=== PATIENT | female | born 1990 | race Caucasian/White ===

== ENCOUNTER 2018-04-20 16:57 | Emergency (ER) | payer MEDICAID ==
[~2018-04-20] VITALS: Ht 160 cm; Wt 67.6 kg
[2018-04-20 17:01] VITALS: BP 133/70
--- NOTE | 2018-04-20 17:04 | NUR ---
URINE CUP HANDED TO PT FOR SAMPLE
[2018-04-20 18:36] LABS: APPEARANCE,URINE CLEAR (CLEAR); COLOR,URINE YELLOW (YELLOW)
[2018-04-20 18:37] LABS: BILIRUBIN,URINE NEGATIVE (NEGATIVE); BLOOD, URINE NEGATIVE (NEGATIVE); LEUKOCYTE ESTERASE ,URINE NEGATIVE (NEGATIVE); NITRITE, URINE NEGATIVE (NEGATIVE); UGLUCOSE NEGATIVE (NEGATIVE)
--- NOTE | 2018-04-20 20:15 | NUR ---
PT CALLED AT 1950, 1954, AND 2014 W/ NO ANSWER. PATIENT LEFT WITHOUT BEING SEEN BY DR. ESCOBAR. NO FURTHER CARE PROVIDED FOR PATIENT.
== END 2018-04-20 19:50 | disposition left against medical advice (07) ==
LOC: MED 16:57
DX: R10.2 Pelvic and perineal pain (principal); Z53.21 Procedure and treatment not carried out due to patient leaving prior to being seen by health care provider
CPT/HCPCS: 81003; 81025; 99281

== ENCOUNTER 2018-09-08 00:09 | Emergency (ER) | payer MEDICAID ==
[~2018-09-08] VITALS: Ht 162.6 cm; Wt 67.1 kg
[2018-09-08 00:19] VITALS: BP 109/74
--- NOTE | 2018-09-08 00:21 | NUR ---
TO LOBBY A/W BED, PAMELLA APPIAH NOTED
--- NOTE | 2018-09-08 00:41 | NUR ---
PT AMBULATED TO BED 03.
--- NOTE | 2018-09-08 00:55 | NUR ---
PT BIB FAMILY C/O DYSURIA. PT STATES DYSURIA, AND FREQUENCY X3 DAYS; HEMATURIA THIS MORNING. DENIES N/V/D. PT STATES 0/10 PAIN AT THIS TIME. --BREATHING EQUAL AND UNLABORED. LUNG SOUND CLEAR BL. BOWEL SOUNDS ACTIVE X4 QUAD. SKIN WARM, DRY AND INTACT. PT IN BED; BED IN LOWER LOCKED POSITION. ER AWARE. PMH: DENIES RX: DENIES
--- NOTE | 2018-09-08 00:58 | NUR ---
Patient discharged by Dr. Adhikari, with v/s stable. Written and verbal after care instructions given and explained. Patient alert, oriented and verbalized understanding of instructions. ID band removed. Patient advised to follow up with PMD. Rx of Pyridium, and Miacrobid Capsule given. Patient educated on indication of medication including possible reaction and side effects. Opportunity to ask questions provided and answered.
[2018-09-08 01:14] VITALS: BP 110/79
== END 2018-09-08 00:58 | disposition home or self-care (01) ==
LOC: MED 00:09
DX: N39.0 Urinary tract infection, site not specified (principal)
CPT/HCPCS: 81002; 81025; 99283

== ENCOUNTER 2018-12-23 10:02 | Emergency (ER) | payer MEDICAID ==
[~2018-12-23] VITALS: Ht 162.6 cm; Wt 71.9 kg
[2018-12-23 10:05] VITALS: BP 111/74
--- NOTE | 2018-12-23 10:15 | NUR ---
Pt c/o blood in urine since yesterday. Denies dysuria or urgency, no recent injury/trauma. DENIES N/V/D; SKIN IS PINK/WARM/DRY; AAOX4 WITH EVEN AND STEADY GAIT; PT DENIES ANY FEVER, CP, SOB, OR COUGH AT THIS TIME; PATIENT STATES PAIN OF 0/10 AT THIS TIME; VSS; PATIENT POSITIONED FOR COMFORT; HOB ELEVATED; BEDRAILS UP X1; BED DOWN. ER MD MADE AWARE OF PT STATUS. DARK BLOOD SPOTS SEEN IN PT'S URINE SAMPLE.
--- NOTE | 2018-12-23 11:10 | NUR ---
Dr. Andrea is re-evaluating pt at bedside.
[2018-12-23 11:53] VITALS: BP 124/81
--- NOTE | 2018-12-23 11:53 | NUR ---
Patient discharged with v/s stable. Written and verbal after care instructions given and explained. Patient verbalized understanding. Ambulatory with steady gait. All questions addressed prior to discharge. Advised to follow up with PMD.
== END 2018-12-23 11:53 | disposition home or self-care (01) ==
LOC: MED 10:02
DX: R31.9 Hematuria, unspecified (principal)
CPT/HCPCS: 81002; 81025; 99283; C1758

== ENCOUNTER 2020-09-28 01:14 | Emergency (ER) | payer MEDICAID ==
[~2020-09-28] VITALS: Ht 160 cm; Wt 63.5 kg
[2020-09-28 01:40] VITALS: BP 112/62
--- NOTE | 2020-09-28 01:52 | NUR ---
AMBUATED TO ER BED 3
--- NOTE | 2020-09-28 02:19 | NUR ---
DR. BELTRÁN AT BEDSIDE ASSESSING PATIENT
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
[2020-09-28 02:50] VITALS: BP 112/62
== END 2020-09-28 02:50 | disposition home or self-care (01) ==
LOC: MED 01:14
DX: M79.18 Myalgia, other site (principal)
CPT/HCPCS: 99281

== ENCOUNTER 2021-04-02 17:23 | Emergency (ER) | payer MEDICAID ==
[~2021-04-02] VITALS: Ht 160 cm; Wt 65.3 kg
[2021-04-02 17:46] VITALS: BP 115/70
--- NOTE | 2021-04-02 17:55 | NUR ---
PT SENT TO LOBBY
[2021-04-02 18:31] LABS: BASOPHILS # (AUTO) 0.1 K/uL (0.00-0.22); BASOPHILS % (AUTO) 0.7 % (0.0-2.0); EOSINOPHILS # (AUTO) 0.1 K/uL (0-0.4); HEMATOCRIT 42.5 % (36-48); LYMPHOCYTES # (AUTO) 1.8 K/uL (2.5-16.5); LYMPHOCYTES % (AUTO) 18.9 % (20.5-51.1); MEAN CORPUSCULAR HEMOGLOBIN 30 pg (27-31); MEAN CORPUSCULAR HGB CONC 33 g/dL (33-37); MONOCYTES # (AUTO) 0.6 K/uL (0.8-1.0); MONOCYTES % (AUTO) 5.9 % (1.7-9.3); NEUTROPHILS # (AUTO) 7.1 K/uL (1.8-7.7); NEUTROPHILS % (AUTO) 73.5 % (42.2-75.2); PLATELET COUNT (AUTO) 423 K/uL (140-450); RED BLOOD CELL COUNT(AUTO) 4.72 MIL/uL (4.20-5.40); WHITE BLOOD COUNT (AUTO) 9.6 K/uL (4.8-10.8)
[2021-04-02 18:38] LABS: ANION GAP 14.2 (8-16); CREATININE 0.7 mg/dL (0.6-1.3); POTASSIUM 4.2 mmol/L (3.5-5.1)
[2021-04-02 18:43] LABS: ALBUMIN 3.6 g/dL (3.4-5.0); TOTAL BILIRUBIN 0.2 mg/dL (0.0-1.0)
[2021-04-02] MEDS ORDERED: NAPR-54 PO (19:27)
[2021-04-02] MEDS ORDERED: CEPH-588 PO (19:32)
--- NOTE | 2021-04-02 19:53 | NUR ---
Patient discharged with v/s stable. Written and verbal after care instructions about wound care and seroma were given and explained. Patient alert, oriented and verbalized understanding of instructions. Ambulatory with steady gait. All questions addressed prior to discharge. ID band removed. Patient advised to follow up with PMD. Rx of Cephalexin and Naproxen given. Patient educated on indication of medication including possible reaction and side effects. Opportunity to ask questions provided and answered. Dr. Nelson spoke to patient in length about her after care.
== END 2021-04-02 19:53 | disposition home or self-care (01) ==
LOC: MED 17:23
DX: K91.872 Postprocedural seroma of a digestive system organ or structure following a digestive system procedure (principal); Z48.01 Encounter for change or removal of surgical wound dressing; Z79.2 Long term (current) use of antibiotics; Z79.1 Long term (current) use of non-steroidal anti-inflammatories (NSAID)
CPT/HCPCS: 36415; 80053; 83690; 85025; 99283

== ENCOUNTER 2021-10-19 14:13 | Emergency (ER) | payer OTHER, MEDICAID ==
[~2021-10-19] VITALS: Ht 160 cm; Wt 72.1 kg
[~2021-10-19 14:13] MED LIST: CEPH-588 PO; NAPR-54 PO
[2021-10-19 14:18] VITALS: BP 125/72
--- NOTE | 2021-10-19 14:31 | NUR ---
PT AMBULATED TO BED 12 WITH STEADY GAIT
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
--- NOTE | 2021-10-19 15:14 | NUR ---
DR THOMAS AT BEDSIDE FOR EVAL
[2021-10-19] MEDS ORDERED: ACETAMINOPHEN EXTRA STRENGTH 500 MG TAB PO ONE (15:20)
[2021-10-19] MEDS ORDERED: IBUP-2213 PO (15:26)
[2021-10-19] MEDS ORDERED: ACET-10509 PO (15:26)
--- NOTE | 2021-10-19 15:31 | NUR ---
RAD AT BEDSIDE
[2021-10-19 16:11] VITALS: BP 125/72
--- NOTE | 2021-10-19 16:11 | NUR ---
Patient discharged with v/s stable. Written and verbal after care instructions given FOR CONCUSSION and explained. Patient alert, oriented and verbalized understanding of instructions. Ambulatory with steady gait. All questions addressed prior to discharge. ID band removed. Patient advised to follow up with PMD. Rx of IBUPROFEN AND TYNENOL given. Patient educated on indication of medication including possible reaction and side effects. Opportunity to ask questions provided and answered.
== END 2021-10-19 16:11 | disposition home or self-care (01) ==
LOC: MED 14:13
DX: S09.90XA Unspecified injury of head, initial encounter (principal); M79.642 Pain in left hand; Z79.899 Other long term (current) drug therapy; Z79.1 Long term (current) use of non-steroidal anti-inflammatories (NSAID); Z79.2 Long term (current) use of antibiotics; V89.2XXA Person injured in unspecified motor-vehicle accident, traffic, initial encounter; Y93.89 Activity, other specified; Y92.410 Unspecified street and highway as the place of occurrence of the external cause; Y99.8 Other external cause status
CPT/HCPCS: 73130; 99283